=== PATIENT | female | born 1985 | race Caucasian/White ===

== ENCOUNTER 2017-06-28 12:26 | Outpatient (CLI) | payer BC ==
[~2017-06-28] VITALS: Ht 167.6 cm; Wt 131.8 kg
[2017-06-28 13:00] VITALS: BP 149/73; PULSE 82
[2017-06-28] MEDS ORDERED: PRENATAL MVI (13:13)
[2017-06-28] MEDS ORDERED: RIOMET500 MG/5 M PO (13:28)
== END 2017-06-28 13:45 | disposition home or self-care (01) ==
LOC: LDRO 12:26
DX: O99.413 Diseases of the circulatory system complicating pregnancy, third trimester (principal); R03.0 Elevated blood-pressure reading, without diagnosis of hypertension; Z3A.36 36 weeks gestation of pregnancy

== ENCOUNTER 2017-07-02 10:58 | Outpatient (CLI) | payer BC ==
[~2017-07-02] VITALS: Ht 172.7 cm; Wt 131.8 kg
[~2017-07-02 10:58] MED LIST: PRENATAL MVI; RIOMET500 MG/5 M PO
[2017-07-02 11:18] VITALS: BP 162/99; PULSE 84; TEMP 98.3
[2017-07-02 11:30] VITALS: BP 151/70; PULSE 70
[2017-07-02 12:00] VITALS: BP 137/68; PULSE 68
== END 2017-07-02 12:20 | disposition home or self-care (01) ==
LOC: LDRO 10:58
DX: O99.413 Diseases of the circulatory system complicating pregnancy, third trimester (principal); R03.0 Elevated blood-pressure reading, without diagnosis of hypertension; Z3A.36 36 weeks gestation of pregnancy

== ENCOUNTER 2017-07-07 10:34 | Inpatient (IN) | payer BC ==
[~2017-07-07] VITALS: Ht 167.6 cm; Wt 133.6 kg
[2017-07-07] VITALS (22 sets, daily range): BP systolic 128–177; BP diastolic 74–106; PULSE 58–113; TEMP 97.5–98.8
[2017-07-07 11:10] LABS: BASO % 0.3 % (0.0-2.0); EOS % 0.4 % (0-4.0); GRAN # 7.8 (1.4-6.5); GRAN % 69.8 % (42.2-75.2); HEMATOCRIT 38.8 % (37.0-47.0); LYMPH # 2.4 (1.2-3.4); LYMPH % 21.9 % (20.0-51.0); MEAN CELL VOLUME 82 fl (80.0-100.0); MEAN CORPUSCULAR HEMOGLOBIN 28 pg (27.0-31.0); MEAN CORPUSCULAR HGB CONC 34 g/dl (33.0-37.0); MONO # 0.8 (0.1-0.6); PLATELET COUNT 230 K/mm3 (130-400); RED BLOOD COUNT 4.72 M/mm3 (4.10-5.30); REDCELL DISTRIBUTION WIDTH-CV 14.2 % (11.5-14.5); WHITE BLOOD COUNT 11.1 K/mm3 (4.8-10.8)
[2017-07-07 19:54] LABS: BASO # 0.1 (0.0-0.2); BASO % 0.3 % (0.0-2.0); GRAN # 13.2 (1.4-6.5); GRAN % 80.5 % (42.2-75.2); HEMATOCRIT 32.7 % (37.0-47.0); LYMPH # 2.1 (1.2-3.4); LYMPH % 12.7 % (20.0-51.0); MEAN CELL VOLUME 83 fl (80.0-100.0); MEAN CORPUSCULAR HEMOGLOBIN 28 pg (27.0-31.0); MEAN CORPUSCULAR HGB CONC 34 g/dl (33.0-37.0); MONO % 6.2 % (1.7-9.3); PLATELET COUNT 195 K/mm3 (130-400); RED BLOOD COUNT 3.96 M/mm3 (4.10-5.30); WHITE BLOOD COUNT 16.4 K/mm3 (4.8-10.8)
[2017-07-07 20:04] LABS: ADJUSTED CALCIUM 9.8 mg/dL (8.4-10.2); ALBUMIN 2.8 gm/dL (3.5-5.0); BILIRUBIN,TOTAL 0.3 mg/dL (0.0-1.0); CALCIUM 8.8 mg/dL (8.4-10.2); CREATININE, serum 0.7 mg/dL (0.52-1.25); TOTAL PROTEIN 5.5 gm/dL (6.4-8.2)
[2017-07-08 02:00] VITALS: BP 139/83; PULSE 71; TEMP 98.3
[2017-07-08 04:00] VITALS: BP 153/88; PULSE 69; TEMP 98
[2017-07-08 07:33] VITALS: BP 150/91; PULSE 86
[2017-07-08 17:09] VITALS: BP 148/82; PULSE 78; TEMP 98.1
[2017-07-08 21:00] VITALS: BP 151/83; PULSE 91; TEMP 98.2
[2017-07-09] VITALS (7 sets, daily range): BP systolic 129–170; BP diastolic 71–102; PULSE 86–95; TEMP 97.9–98.3
[2017-07-09] MEDS ORDERED: PROCARDIA XL 3030 MG PO (08:41)
[2017-07-09] MEDS ORDERED: PERCOCET 325 MG1 TA2 PO (08:42)
[2017-07-09] MEDS ORDERED: IBU800 M1 PO (08:42)
[2017-07-10 04:00] VITALS: BP 156/92; PULSE 76
[2017-07-10 08:03] VITALS: BP 157/100; PULSE 76
== END 2017-07-10 09:30 | disposition home health service (06) | DRG 766 ==
LOC: LDRO 10:34 → LDR 11:11 → OB 11:11
PROVIDERS: Obstetrics & Gynecology; Student in an Organized Health Care Education/Training Program
PROC: 10D00Z1 Extraction of Products of Conception, Low, Open Approach (ICD-10-PCS; principal; 2017-07-07)
DX: O14.14 Severe pre-eclampsia complicating childbirth (principal); Z3A.37 37 weeks gestation of pregnancy; Z37.0 Single live birth
CPT/HCPCS: J0690; J1885; J2175; J2270; J2370; J2405; J2550; J2590; J7120

== ENCOUNTER → 2019-07-05 | Outpatient (CLI) | payer BC ==
[~2019-07-05] MED LIST changes: +IBU800 M1 PO; +PERCOCET 325 MG1 TA2 PO; +PROCARDIA XL 3030 MG PO
== END ==
LOC: COL.RAD 08:46
DX: Z31.41 Encounter for fertility testing (principal)
CPT/HCPCS: Q9967

== ENCOUNTER 2024-05-02 10:43 | Emergency (ER) | payer BC ==
[~2024-05-02] VITALS: Ht 167.6 cm; Wt 127.3 kg
[~2024-05-02 10:43] MED LIST changes: +NORMODYNE200 MG PO; +NORMODYNE300 MG PO
[2024-05-02 10:52] VITALS: TEMP 97.7
[2024-05-02] MEDS ORDERED: NS 1,000 ML IV ONE (11:15)
[2024-05-02] MEDS ORDERED: Morphine 4 MG/ML VIAL IV ONE (11:30)
[2024-05-02 11:43] LABS: BASO % 0.3 % (0.0-2.0); EOS # 0.1 K/mm3 (0.0-0.7); EOS % 0.5 % (0.0-4.0); GRAN % 78.7 % (42.2-75.2); HEMATOCRIT 39.4 % (37.0-47.0); HEMOGLOBIN 12.9 g/dl (12.5-16.0); LYMPH # 1.9 K/mm3 (1.2-3.4); LYMPH % 14.7 % (20.0-51.0); MEAN CELL VOLUME 85 fl (80.0-100.0); MEAN CORPUSCULAR HEMOGLOBIN 28 pg (27-31); MEAN CORPUSCULAR HGB CONC 33 g/dl (33.0-37.0); MEAN PLATELET VOLUME 9.3 fl (7.4-10.4); MONO # 0.7 K/mm3 (0.1-0.6); MONO % 5.6 % (1.7-9.3); PLATELET COUNT 330 K/mm3 (130-400); RED BLOOD COUNT 4.63 M/mm3 (4.10-5.30); REDCELL DISTRIBUTION WIDTH-CV 13.2 % (11.5-14.5)
[2024-05-02 11:46] LABS: URINE COLOR YELLOW (YELLOW)
[2024-05-02 11:47] LABS: PH 5.5 (5.0-8.5); URINE APPEARANCE Hazy (CLEAR/HAZY); URINE GLUCOSE NEGATIVE (NEGATIVE); URINE KETONE NEGATIVE (NEGATIVE); URINE PROTEIN(semi-quant) NEGATIVE (NEGATIVE); URINE UROBILINOGEN 0.2 E.U/dL (0.2-1.0)
[2024-05-02 11:48] LABS: URINE BLOOD 3+ (NEGATIVE); URINE NITRATE NEGATIVE (NEGATIVE)
[2024-05-02 11:54] LABS: ALBUMIN 3.8 g/dL (3.5-5.0); BILIRUBIN,TOTAL 0.2 mg/dL (0.2-1.2); CREATININE, serum 0.69 mg/dL (0.57-1.11); POTASSIUM 3.6 mEq/L (3.5-4.5); TOTAL PROTEIN 6.7 g/dl (6.2-8.1)
[2024-05-02 12:14] LABS: COLLECTION METHOD CLEAN CATCH
[2024-05-02 12:15] LABS: URINE WBC 0-2 /hpf (0-2)
[2024-05-02 12:16] LABS: MUCOUS PRESENT (NOT PRESENT); URINE BACTERIA MODERATE /hpf (NONE SEEN)
[2024-05-02] MEDS ORDERED: Tranexamic Acid 1,000 MG in NS 100 ML IV ONE (14:15)
[2024-05-02] MEDS ORDERED: LYSTEDA650 MG PO (14:55)
[2024-05-02 15:50] VITALS: BP 148/96; PULSE 88
== END 2024-05-02 15:51 | disposition home or self-care (01) ==
LOC: COL.ER 10:43
PROVIDERS: Nurse Practitioner
DX: N92.0 Excessive and frequent menstruation with regular cycle (principal)
CPT/HCPCS: J2270; J7030